=== PATIENT | female | born 1960 | race Caucasian/White ===

== ENCOUNTER 2017-01-30 09:27 | Emergency (ER) | payer BC ==
[~2017-01-30] VITALS: Ht 157.5 cm; Wt 71.0 kg
[2017-01-30] MEDS ORDERED: BUPR100SR PO (10:02)
[2017-01-30] MEDS ORDERED: PROG100C6 PO (10:02)
[2017-01-30] MEDS ORDERED: ACETAMINOPHEN 325 MG TABLET PO ONE (13:15)
[2017-01-30 13:28] VITALS: BP 132/82
== END 2017-01-30 13:38 | disposition home or self-care (01) ==
LOC: EMS 09:37
DX: H11.32 Conjunctival hemorrhage, left eye (principal)
CPT/HCPCS: 99283